=== PATIENT | female | born 1980 | race Caucasian/White ===

== ENCOUNTER → 2024-02-20 15:26 | Outpatient (REF) | payer OTHER, SELFPAY | LOC: HWWDC 15:26 | PROVIDERS: ATTENDING PHYSICIAN Obstetrics & Gynecology; FAMILY PHYSICIAN Nurse Practitioner | DX: Z12.31 Encounter for screening mammogram for malignant neoplasm of breast (principal) | CPT/HCPCS: 77063; 77067 ==

== ENCOUNTER → 2024-03-12 09:26 | Outpatient (REF) | payer OTHER, SELFPAY | LOC: RAD 09:26 | PROVIDERS: ATTENDING PHYSICIAN Obstetrics & Gynecology; FAMILY PHYSICIAN Nurse Practitioner | DX: D25.9 Leiomyoma of uterus, unspecified (principal) | CPT/HCPCS: 76830; 76856 ==

== ENCOUNTER → 2024-09-05 14:58 | Outpatient (REF) | payer OTHER, SELFPAY | LOC: HWRAD 14:58 | PROVIDERS: ATTENDING PHYSICIAN Physician Assistant | DX: E04.9 Nontoxic goiter, unspecified (principal) | CPT/HCPCS: 76536 ==

== ENCOUNTER → 2025-03-12 07:38 | Outpatient (REF) | payer OTHER, SELFPAY | LOC: WDC 07:38 | PROVIDERS: ATTENDING PHYSICIAN Obstetrics & Gynecology | DX: Z12.31 Encounter for screening mammogram for malignant neoplasm of breast (principal) | CPT/HCPCS: 77063; 77067 ==

== ENCOUNTER → 2025-03-13 08:45 | Outpatient (REF) | payer OTHER, SELFPAY | LOC: RAD 08:45 | PROVIDERS: ATTENDING PHYSICIAN Obstetrics & Gynecology | DX: D21.9 Benign neoplasm of connective and other soft tissue, unspecified (principal) | CPT/HCPCS: 76830; 76856 ==

== ENCOUNTER → 2025-08-28 06:44 | Outpatient (REF) | payer OTHER, SELFPAY | LOC: HWRAD 06:44 | PROVIDERS: ATTENDING PHYSICIAN Physician Assistant | DX: E04.9 Nontoxic goiter, unspecified (principal) | CPT/HCPCS: 76536 ==